=== PATIENT | male | born 2000 | race Caucasian/White ===

== ENCOUNTER → 2020-06-22 08:34 | Outpatient (CLI) | payer OTHER | END | disposition home or self-care (01) | LOC: D.NM 08:34 | PROVIDERS: ATTEND Surgery | DX: K92.0 Hematemesis (principal); R19.7 Diarrhea, unspecified; R10.30 Lower abdominal pain, unspecified; R63.4 Abnormal weight loss; R11.2 Nausea with vomiting, unspecified ==